=== PATIENT | male | born 1955 | race Caucasian/White ===

== ENCOUNTER 2021-06-03 08:59 | Day surgery (SDC) | payer MEDICARE, MEDICAID, SELFPAY ==
[2021-05-28 11:15] VITALS: BMI 34.9
--- NOTE | 2021-05-30 12:59 | MHC.SHP ---
Pre-Procedural Eval Section A Date of Service: 05/30/21 The patient is an INPATIENT: No Changes since office visit: No Cold of Flu in the past 2 weeks, No New Medical Problems, No Changes in Medication and No Patient answered all questions The History & Physical has been completed within 30 days and I have reviewed it.: Yes Section B Chief Complaint: cataract Allergies: Allergies Allergy/AdvReac Type Severity Reaction Status Date / Time No Known Allergies Allergy Verified 05/28/21 11:11 Plan Diagnosis/Plan: Unchanged I have reviewed the history and physical and performed a pertinent physical examination on my patient. No changes have occurred unless specified.
--- NOTE | 2021-05-31 08:28 | P.CONAN_ITS ---
Documented by User: Ivelisse Jackson NP 05/31/21 08:29 HPI - Anesthesia Eval Consult details Narrative: 65yo M for Left Cataract Extraction IOL Insertion PCP cleared (K=5.7 on 05/14/21, will repeat DOS to ensure not critical) No previous cataract on record PMFSH Past Medical History Medical History Colon cancer COVID-19 vaccine series completed Diabetic neuropathy Elevated cholesterol Hx MRSA infection Right below-knee amputee Type 1 diabetes mellitus Surgical History Surgical History H/O colonoscopy History of right below knee amputation Hx of right hemicolectomy Social History Social History Are you a primary day care supervisor to a significant other at home: No Do you presently have visiting nurse or other home services: Yes ([facility]) Patient Tobacco Use Status: Never used Tobacco Use of substances other than those prescribed or required for medical reasons: No Have you been hit, kicked, punched, or otherwise hurt by someone within the past year? If so, by whom?: No Are you DNR?: No Advance Directives Information Provided: Yes (as above noted) Advance Directives on File: No Recently lost weight without trying: No Eating poorly because of decreased appetite: No Nutrition Risks: No Nutritional Risk Poor oral hygiene: No (upper full denture) Meds Allergies Allergy/AdvReac Type Severity Reaction Status Date / Time No Known Allergies Allergy Verified 06/03/21 10:36 Home Medications Medication Instructions Recorded Confirmed Last Taken Type atorvastatin 80 mg tablet 1 tab PO DAILY 05/28/21 05/28/21 Unknown History dulaglutide 3 mg/0.5 mL 3 mg SUBCUT QWEEK 05/28/21 05/28/21 Unknown History subcutaneous pen injector (Trulicity) gabapentin 100 mg capsule 1 cap PO TID 05/28/21 05/28/21 Unknown History insulin glargine 100 unit/mL (3 65 unit SUBCUT QAM 05/28/21 05/28/21 06/03/21 06:00 History mL) subcutaneous pen (Lantus Solostar U-100 Insulin) insulin lispro 100 unit/mL 65 unit SUBCUT QAM 05/28/21 05/28/21 06/03/21 06:00 History subcutaneous pen (Humalog KwikPen (U-100) Insulin) Exam Exam Date and Time: May 31, 202128 Height,Weight and Vital Signs: Height 6 ft 1 in Weight 120.202 kg Assessment and Plan Assessment Anesthesia Assessment: Chart Reviewed Documented by User: Kristie Segura MD 06/03/21 10:50 [facility] [place] Past Medical History Medical History Colon cancer COVID-19 vaccine series completed Diabetic neuropathy Elevated cholesterol Hx MRSA infection Right below-knee amputee Type 1 diabetes mellitus Family History Family history of problems with anesthesia: No Surgical History Surgical History H/O colonoscopy History of right below knee amputation Hx of right hemicolectomy History of Problems with Anesthesia: No Social History Social History Are you a primary day care supervisor to a significant other at home: No Do you presently have visiting nurse or other home services: Yes ([facility]) Patient Tobacco Use Status: Never used Tobacco Use of substances other than those prescribed or required for medical reasons: No Have you been hit, kicked, punched, or otherwise hurt by someone within the past year? If so, by whom?: No Are you DNR?: No Advance Directives Information Provided: Yes (as above noted) Advance Directives on File: No Recently lost weight without trying: No Eating poorly because of decreased appetite: No Nutrition Risks: No Nutritional Risk Poor oral hygiene: No (upper full denture) Meds Allergies Allergy/AdvReac Type Severity Reaction Status Date / Time No Known Allergies Allergy Verified 06/03/21 10:36 Home Medications Medication Instructions Recorded Confirmed Last Taken Type atorvastatin 80 mg tablet 1 tab PO DAILY 05/28/21 05/28/21 Unknown History dulaglutide 3 mg/0.5 mL 3 mg SUBCUT QWEEK 05/28/21 05/28/21 Unknown [facility] gabap[facility] 100 mg capsule 1 cap PO TID 05/28/21 05/28/21 Unknown History insulin glargine 100 unit/mL (3 65 unit SUBCUT QAM 05/28/21 05/28/21 06/03/21 06:00 History mL) subcutaneous pen (Lantus Solostar U-100 Insulin) insulin lispro 100 unit/mL 65 unit SUBCUT QAM 05/28/21 05/28/21 06/03/21 06:00 History subcutaneous pen (Humalog KwikPen (U-100) Insulin) Exam Airway Mallampati Class: II (Edentulous) TM Dist: >3cm Neck ROM: Full Heart: rrr Lungs: cta Assessment and Plan Assessment Anesthesia Assessment: Anesthesia Plan Discussed and Chart Reviewed Final Anesthetic Review Family History of Problems with Anesthesia: No History of Problems with Anesthesia: No NPO: Yes ASA Class: III Final Preanesthetic Review: No Changes in Pt Med Stat, Meds/Allgs Chart Reviewed and Consent Obtained/Reviewed Patient Risk: Intermediate Procedure Risk: Intermediate Anesthetic Plan Anesthetic Plan: MAC: Disposition: Standard PACU
[2021-06-03 10:37] VITALS: BP 157/76; PULSE 77; RESP 16; TEMP 37.2; O2SAT 96
[2021-06-03 10:49] LABS: Glucose, Whole Blood 177 mg/dL (60-115)
[2021-06-03] MEDS: Tetracaine HCl/PF 0.5% Oph Sol 4 ML DROPS 1 DROP EYE-LEFT (10:49)
[2021-06-03] MEDS: Tropicamide 1 % Ophth Sol 3 ML BTL 1 DROP EYE-LEFT ×3 (10:52→11:01)
[2021-06-03] MEDS: Phenylephrine HCL 2.5% Oph SoL 2 ML BOTTLE 1 DROP EYE-LEFT ×3 (10:54→11:06)
[2021-06-03] MEDS: Lactated Ringers 500 ML 50 ML IV (11:01)
[2021-06-03 11:33] LABS: Anion Gap 13 (12-20); Carbon Dioxide 30 mmol/L (22-29); Chloride 103 mmol/L (96-108); Potassium 4.6 mmol/L (3.3-5.1); Sodium 141 mmol/L (135-145)
--- NOTE | 2021-06-03 12:08 | HO.PNOPHT ---
Ophthalmology Procedure Procedure Date of Service: 06/03/21 Ophthalmology Viscoelastic: Healkanika Duet Dual Pack Pro Ophthalmology Lenses: TECNIS [id number] (13.5) Procedure Notes: PREOPERATIVE DIAGNOSIS: Decreased visual acuity left eye secondary to cataract POSTOPERATIVE DIAGNOSIS: Same PROCEDURE: Left cataract extraction with intraocular lens insertion SURGEON: Lino Britt M.D. ANESTHESIA: Topical/MAC ESTIMATED BLOOD LOSS: None COMPLICATIONS: None After obtaining informed consent, the patient was brought to the operation room suite and placed in the supine position. After adequate sedation per anesthesia, topical drops of Tetracaine were given to the left eye. The eye was then prepped and draped in the usual sterile fashion. The operating room microscope was then positioned over the operative eye and a lid speculum placed. A paracentesis was created. Viscoelastic was then instilled into the anterior chamber. A three plane incision was then created temporally, utilizing a 2.85 mm keratome. Capsulotomy forceps were then utilized to create a circular tear capsulotomy. Hydrodissection and hydrodelineation were carried out until adequate mobilization of the nucleus occurred. Phacoemulsification was then utilized to remove the dense central nucleus followed by removal of the cortical material utilizing the automated aspiration irrigation unit. Viscoat elastic was instilled into the posterior capsular bag followed by placement of a posterior chamber intraocular lens without difficulty. The residual Viscoat elastic was then removed utilizing the automated IA machine. The wound was check and found to be watertight. The patient tolerated the procedure well and the lid speculum was removed. Intracameral injection of Vigamox 0.1 mL followed by a subtenon injection of Kenalog-40 0.2 mL were administered. The patient will be seen in the a.m.
[2021-06-03 12:36] VITALS: BP 152/63; PULSE 74; RESP 16; TEMP 36.8; O2SAT 96
[2021-06-03 12:59] LABS: Glucose, Whole Blood 140 mg/dL (60-115)
== END 2021-06-03 12:45 | disposition home or self-care (01) ==
PROVIDERS: Nurse Practitioner; PCP Internal Medicine; Visit Provider Ophthalmology
PROC: (CPT 66985; principal; 2021-06-03 12:30)
DX: H25.12 Age-related nuclear cataract, left eye (principal); H52.4 Presbyopia; E11.3553 Type 2 diabetes mellitus with stable proliferative diabetic retinopathy, bilateral; Z79.4 Long term (current) use of insulin; E78.00 Pure hypercholesterolemia, unspecified; Z89.511 Acquired absence of right leg below knee; F17.290 Nicotine dependence, other tobacco product, uncomplicated; Z79.899 Other long term (current) drug therapy
CPT/HCPCS: 66984; 36415; 80051; 82947; J2250; J3010; J3300; V2632

== ENCOUNTER 2021-06-17 07:24 | Day surgery (SDC) | payer MEDICARE, MEDICAID, SELFPAY ==
[2021-05-28 11:19] VITALS: BMI 34.9
--- NOTE | 2021-06-13 12:48 | MHC.SHP ---
Pre-Procedural Eval Section A Date of Service: 06/13/21 The patient is an INPATIENT: No Changes since office visit: No Cold of Flu in the past 2 weeks, No New Medical Problems, No Changes in Medication and No Patient answered all questions The History & Physical has been completed within 30 days and I have reviewed it.: Yes Section B Chief Complaint: cataract Allergies: Allergies Allergy/AdvReac Type Severity Reaction Status Date / Time No Known Allergies Allergy Verified 06/03/21 10:36 Plan Diagnosis/Plan: Unchanged I have reviewed the history and physical and performed a pertinent physical examination on my patient. No changes have occurred unless specified.
--- NOTE | 2021-06-14 09:07 | HO.ANESPROP2 ---
Documented by User: Ivelisse Jackson NP 06/14/21 09:08 HPI - Anesthesia Eval Consult details Narrative: 65yo M for Right Cataract Multifocal with IOL Insertion PCP cleared Left eye done 06/03/21: Fent 50, Midaz 2 PMFSH Past Medical History Medical History Colon cancer COVID-19 vaccine series completed Diabetic neuropathy Elevated cholesterol Hx MRSA infection Right below-knee amputee Type 1 diabetes mellitus Family History Family history of problems with anesthesia: No Surgical History Surgical History H/O colonoscopy History of right below knee amputation Hx of right hemicolectomy History of Problems with Anesthesia: No Social History Social History Are you a primary post acute care nurse to a significant other at home: No Do you presently have visiting nurse or other home services: Yes ([facility]NA) Patient Tobacco Use Status: Never used Tobacco Use of substances other than those prescribed or required for medical reasons: No Have you been hit, kicked, punched, or otherwise hurt by someone within the past year? If so, by whom?: No Are you DNR?: No Advance Directives: No Advance Directives Information Provided: Yes Advance Directives on File: No Recently lost weight without trying: No Eating poorly because of decreased appetite: No Nutrition Risks: No Nutritional Risk Poor oral hygiene: No (upper full denture) Meds Allergies Allergy/AdvReac Type Severity Reaction Status Date / Time No Known Allergies Allergy Verified 06/03/21 10:36 Home Medications Medication Instructions Recorded Confirmed Last Taken Type atorvastatin 80 mg tablet 1 tab PO DAILY 05/28/21 05/28/21 Unknown History dulaglutide 3 mg/0.5 mL 3 mg SUBCUT QWEEK 05/28/21 05/28/21 Unknown History subcutaneous pen injector (Trulicity) gabapentin 100 mg capsule 1 cap PO TID 05/28/21 05/28/21 Unknown History insulin glargine 100 unit/mL (3 65 unit SUBCUT QAM 05/28/21 05/28/21 06/03/21 06:00 History mL) subcutaneous pen (Lantus Solostar U-100 Insulin) insulin lispro 100 unit/mL 65 unit SUBCUT QAM 05/28/21 06/17/21 06/17/21 History subcutaneous pen (Humalog KwikPen (U-100) Insulin) Exam Exam Date and Time: June 14, 2021 0907 Height,Weight and Vital Signs: Height 6 ft 1 in Weight 120.202 kg Assessment and Plan Assessment Anesthesia Assessment: Chart Reviewed Final Anesthetic Review Family History of Problems with Anesthesia: No History of Problems with Anesthesia: No Documented by User: Jam Marquez MD 06/17/21 09:02 [facility] Past Medical History Medical History Colon cancer COVID-19 vaccine series completed Diabetic neuropathy Elevated cholesterol Hx MRSA infection Right below-knee amputee Type 1 diabetes mellitus Surgical History Surgical History H/O colonoscopy History of right below knee amputation Hx of right hemicolectomy Social History Social History Are you a primary post acute care nurse to a significant other at home: No Do you presently have visiting nurse or other home services: Yes (VNA) Patient Tobacco Use Status: Never used Tobacco Use of substances other than those prescribed or required for medical reasons: No Have you been hit, kicked, punched, or otherwise hurt by someone within the past year? If so, by whom?: No Are you DNR?: No Advance Directives: No Advance Directives Information Provided: Yes Advance Directives on File: No Recently lost weight without trying: No Eating poorly because of decreased appetite: No Nutrition Risks: No Nutritional Risk Poor oral hygiene: No (upper full denture) Meds Allergies Allergy/AdvReac Type Severity Reaction Status Date / Time No Known Allergies Allergy Verified 06/03/21 10:36 Home Medications Medication Instructions Recorded Confirmed Last Taken Type atorvastatin 80 mg tablet 1 tab PO DAILY 05/28/21 05/28/21 Unknown History dulaglutide 3 mg/0.5 mL 3 mg SUBCUT QWEEK 05/28/21 05/28/21 Unknown History subcutaneous pen injector ([facility]) gabapentin 100 mg capsule 1 cap PO TID 05/28/21 05/28/21 Unknown History insulin glargine 100 unit/mL (3 65 unit SUBCUT QAM 05/28/21 05/28/21 06/03/21 06:00 History mL) subcutaneous pen (Lantus Solostar U-100 Insulin) insulin lispro 100 unit/mL 65 unit SUBCUT QAM 05/28/21 06/17/21 06/17/21 History subcutaneous pen (Humalog KwikPen (U-100) Insulin) Exam Airway Mallampati Class: III TM Dist: >3cm Neck ROM: Full Denture: Upper Loose/Missing/Broken Teeth: Yes Heart: rrr+[id number] Lungs: cta b/l Assessment and Plan Assessment Anesthesia Assessment: Anesthesia Plan Discussed Final Anesthetic Review NPO: Yes ASA Class: III Final Preanesthetic Review: No Changes in Pt Med Stat, Meds/Allgs Chart Reviewed, Consent Obtained/Reviewed and Anes Risks/Benef Reviewed Patient Risk: Intermediate Procedure Risk: Low Assessment/Block/Sedation in SS: Assess/Block/Sedation-SS Anesthetic Plan Anesthetic Plan: MAC: and Agree w/ Assess. and Plan Disposition: Standard PACU
[2021-06-17 08:19] VITALS: BP 188/82; PULSE 98; RESP 18; TEMP 36.4; O2SAT 97
[2021-06-17 08:24] LABS: Glucose, Whole Blood 221 mg/dL (60-115)
[2021-06-17] MEDS: Tetracaine HCl/PF 0.5% Oph Sol 4 ML DROPS 1 DROP EYE-RIGHT (08:31)
[2021-06-17] MEDS: Tropicamide 1 % Ophth Sol 3 ML BTL 1 DROP EYE-RIGHT ×3 (08:31→08:38)
[2021-06-17] MEDS: Phenylephrine HCL 2.5% Oph SoL 2 ML BOTTLE 1 DROP EYE-RIGHT ×3 (08:31→08:38)
[2021-06-17] MEDS: Lactated Ringers 500 ML 50 ML IV (08:31)
--- NOTE | 2021-06-17 10:02 | HO.PNOPHT ---
Ophthalmology Procedure Procedure Date of Service: 06/17/21 Ophthalmology Viscoelastic: Isabella Taverast Dual Pack Pro Ophthalmology Lenses: TECPRISCILLA [id number] (14) Procedure Notes: PREOPERATIVE DIAGNOSIS: Decreased visual acuity right eye secondary to cataract POSTOPERATIVE DIAGNOSIS: Same PROCEDURE: Right cataract extraction with intraocular lens insertion SURGEON: Lino Britt M.D. ANESTHESIA: Topical/MAC ESTIMATED BLOOD LOSS: None COMPLICATIONS: None After obtaining informed consent, the patient was brought to the operating room suite and placed in the supine position. After adequate sedation per anesthesia, topical drops of Tetracaine were given to the right eye. The eye was then prepped and draped in the usual sterile fashion. The operating room microscope was then positioned over the operative eye and a lid speculum placed. A paracentesis was created. Viscoelastic was then instilled into the anterior chamber. A three plane incision was then created temporally, utilizing a 2.85 mm keratome. Capsulotomy forceps were then utilized to create a circular tear capsulotomy. Hydrodissection and hydrodelineation were carried out until adequate mobilization of the nucleus occurred. Phacoemulsification was then utilized to remove the dense central nucleus followed by removal of the cortical material utilizing the automated aspiration irrigation unit. Viscoelastic was instilled into the posterior capsular bag followed by placement of a posterior chamber intraocular lens without difficulty. The residual Viscoelastic was then removed utilizing the automated IA machine. The wound was checked and found to be watertight. The patient tolerated the procedure well and the lid speculum was removed. Intracameral injection of Vigamox 0.1 mL followed by a subtenon injection of Kenalog-40 0.2 mL were administered. The patient will be seen in the a.m.
[2021-06-17 10:26] VITALS: BP 157/72; PULSE 69; RESP 16; TEMP 36.9; O2SAT 96
== END 2021-06-17 10:29 | disposition home or self-care (01) ==
PROVIDERS: PCP Internal Medicine; Visit Provider Ophthalmology
PROC: (CPT 66985; principal; 2021-06-17 10:10)
DX: H25.11 Age-related nuclear cataract, right eye (principal); H52.4 Presbyopia; E78.00 Pure hypercholesterolemia, unspecified; E11.3553 Type 2 diabetes mellitus with stable proliferative diabetic retinopathy, bilateral; Z79.4 Long term (current) use of insulin; Z79.82 Long term (current) use of aspirin; Z79.899 Other long term (current) drug therapy; Z89.511 Acquired absence of right leg below knee; F17.290 Nicotine dependence, other tobacco product, uncomplicated
CPT/HCPCS: 66984; 82947; J2250; J3300; V2632